=== PATIENT | female | born 1950 | race Caucasian/White ===

== ENCOUNTER 2021-01-11 22:22 | Observation (INO) | payer MEDICARE, SELFPAY ==
--- NOTE | 2021-01-11 22:13 | ECG_ITS ---
APPROVED REPORT Exam: Resting ECG HR:104 bpm ECG Measurements Heart Rate 104 AXES GA 182 P 69 QRSd 90 QRS -37 QT 364 T 67 QTc 478 Conclusion Sinus tachycardia with premature atrial complexes with aberrant conduction Left axis deviation Late r wave progression Abnormal ECG Electronically signed by : Dmitry Cesar, 01/12/2021 08:52:17
[2021-01-11 22:22] VITALS: BP 151/90; PULSE 103; RESP 22; TEMP 37.8; O2SAT 96; BMI 22.6
--- NOTE | 2021-01-11 22:27 | XR_ITS ---
PROCEDURE: XR CHEST 2V CLINICAL HISTORY: chest pain COMPARISON: No exams were available for comparison FINDINGS: The cardiomediastinal silhouette and pulmonary vascularity are within normal limits. COPD changes. There is some irregular increased density in the mid upper abdomen etiology indeterminate incompletely image. No acute bony findings. IMPRESSION: As above, no acute finding nonspecific irregular increased density mid upper abdomen incompletely imaged etiology indeterminate and may be better evaluated with abdominal images Dictated by: Peter Young MD 01/12/2021 06:00 Peter Young MD in [facility] 01/12/2021 06:00
--- NOTE | 2021-01-11 22:28 | CT_ITS ---
PROCEDURE: CT HEAD/BRAIN WO CON CLINICAL INDICATION: headache Headache and left weakness COMPARISON: No exams were available for comparison TECHNIQUE: Axial images obtained. All CT scans at the facility use one or more dose reduction, viz: automated exposure control, ma/kV adjustment per patient size (including targeted exams where dose is matched to indication, i.e. head), or iterative reconstruction technique. FINDINGS: No midline shift, mass effect, intracranial hemorrhage, hydrocephalus, or extra-axial fluid collection is evident. Old lacunar infarction is in the head of caudate on right. The calvarium has an unremarkable appearance. No mastoid effusion. No sinus air-fluid level. 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
--- NOTE | 2021-01-11 22:28 | CT_ITS ---
Procedure: CT ANGIO NECK CLINICAL HISTORY: left arm weakness, chest pain COMPARISON: CT CT ANGIO HEAD from 01/11/2021 TECHNIQUE: IV Contrast: 100ml Isovue 370 Axial images obtained with sagittal and coronal reformats. All CT scans at the facility use one or more dose reduction, viz: automated exposure control, ma/kV adjustment per patient size (including targeted exams where dose is matched to indication, i.e. head), or iterative reconstruction technique. FINDINGS: CTA neck: Scattered atheromatous changes are present involving the aortic arch and great vessels. Mild atheromatous change at the carotid bulb bilaterally with 30 percent stenosis of the ostium of the right ICA. No significant stenosis on the left. Prominent left vertebral artery with 40 percent stenosis of the ostium. 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 No significant stenosis, occlusion, ulcerations or dissection. CTA head: Mild atheromatous changes in the cavernous portion of the ICA on both sides. No aneurysm, occlusion, dissection, or AVMs. The basilar artery is contributed solely by the left vertebral. Centrilobular emphysema in the lung apices. No enhancing lesions within the brain. IMPRESSION: 1. Atherosclerotic changes in both carotid bifurcations without significant stenosis. 2. Hypoplastic right vertebral artery. Dictated by: Peter Young MD 01/12/2021 08:50 Peter Young MD in [facility] 01/12/2021 08:51
[2021-01-11 22:30] VITALS: BP 140/70; PULSE 98; RESP 17; O2SAT 95
--- NOTE | 2021-01-11 22:32 | HMH.EDGENADL ---
ED Disposition Clinical Impression: TIA (transient ischemic attack) Disposition: Admitted As Inpatient Condition on Discharge: Fair Time of Disposition: 00:32 - Critical Care Critical Care Time: No Attestation: On 01/11/21, the high probability of a clinically significant, sudden or life threatening deterioration of the following system(s) required my full and direct attention, intervention and personal management. The time I documented below is in addition to time spent performing reported procedures but includes the following listed in this critical care notation. Medical Decision Making - Medical Records Medical records reviewed: Yes: I reviewed the patient's medical records. - Esequiel Inquiry Pt receiving controlled substance: No Vital Signs: 01/11/21 22:22 01/11/21 22:30 01/12/21 00:00 Temperature 100.0 F H Temperature Source Oral Pulse Rate [Left Radial] 103 H 98 H 95 H Respiratory Rate 22 17 17 Blood Pressure [Right Arm] 151/90 H 140/70 128/56 L Blood Pressure Mean [Right Arm] 110 93 80 Blood Pressure Source [Right Arm] Automatic Cuff Automatic Cuff Automatic Cuff Blood Pressure Position [Right Arm] Supine Supine Supine 02 Sat by Pulse Oximetry 96 95 96 Oxygen Delivery Method Room Air Room Air Room Air 01/12/21 00:30 Temperature Temperature Source Pulse Rate [Left Radial] 91 H Respiratory Rate 21 Blood Pressure [Right Arm] 128/69 Blood Pressure Mean [Right Arm] 88 Blood Pressure Source [Right Arm] Automatic Cuff Blood Pressure Position [Right Arm] Supine 02 Sat by Pulse Oximetry 96 Oxygen Delivery Method Room Air - Lab Data Lab Results 01/11/21 22:15: WBC 10.9 H, RBC 4.59, Hgb 14.1, Hct 44.3, MCV 96.3, MCH 30.7, MCHC 31.9, RDW 13.2, Plt Count 327, MPV 7.8, Neut % (Auto) 70.2, Lymph % (Auto) 22.9, [place] % (Auto) 5.0, Eos % (Auto) 1.3, Baso % (Auto) 0.6, Neut # (Auto) 7.7, Lymph # (Auto) 2.5, [place] # (Auto) 0.6, Eos # (Auto) 0.1, Baso # (Auto) 0.1 01/11/21 22:15: Sodium 140, Potassium 4.2, Chloride 105, Carbon Dioxide 28, Anion Gap 11.2, BUN 14, Creatinine 0.90, Estimated GFR 62, Est GFR ( Amer) 75, Glucose 121 H, Calcium 9.9, Troponin I < 0.01 Result diagrams: 01/11/21 22:15 01/11/21 22:15 Orders (Tests/Meds): ED MEDICATIONS Generic Name Dose Route Start Last Admin Trade Name Freq PRN Reason Stop Dose Admin Nitroglycerin 0.4 mg 01/11/21 22:27 01/11/21 23:47 Nitroglycerin 0.4mg Sl Tablet SL 01/12/21 22:27 0.4 mg Q5MINP PRN Administration Chest Pain Discontinued Medications Generic Name Dose Route Start Last Admin Trade Name Freq PRN Reason Stop Dose Admin Aspirin 324 mg 01/11/21 22:27 01/11/21 23:47 Aspirin 81mg Chewable Tablet PO 01/11/21 22:28 324 mg ONCE ONE Administration ORDERS Category Date Time Status CT angio head Stat Cat Scan 01/11/21 22:[address] angio neck Stat Cat Scan 01/11/21 22:[address] head/brain wo con Stat Cat Scan 01/11/21 22:28 Ordered XR chest 2V Stat Exams 01/11/21 22:27 Ordered Full Resp Panel w/COVID ([facility]) Routine Lab 01/12/21 00:25 Received Troponin I Q3H Lab 01/12/21 01:30 Ordered Troponin I Q3H Lab 01/12/21 04:30 Ordered ECG Request by /Latonya Stat Y 01/11/21 22:27 Ordered - ECG Data Tracing #1 Sinus rhythm with ventricular rate of 104 bpm. QRS 90, QTc 478. Left axis deviation. ST segment flattening in aVL, V1. No reciprocal ST segment elevations. Medical Decision Narrative: In summary this is a 70-year-old female with history of hypertension presenting to the emergency department with chest pain, headache, left arm tingling. Patient clinically stable on arrival. Tachycardic. Other vital signs stable. Presentation is most concerning for acute coronary syndrome, aortic pathology,carotid stenosis, TIA, musculoskeletal pain. Will obtain CBC, CMP, chest x-ray, EKG, troponin profile, CT angiography of the head and neck, including the aortic arch. Initial laboratory
[2021-01-11 22:37] LABS: Chloride 105 mmol/L (98-107); Potassium 4.2 mmoL/L (3.5-5.1); Sodium 140 mmol/L (136-145)
[2021-01-11 22:39] LABS: Basophils # 0.1 K/mm3 (0-0.2); Basophils % 0.6 % (0.1-2.0); Eosinophils # 0.1 K/mm3 (0.0-0.4); Eosinophils % 1.3 % (0.1-12.0); Hematocrit 44.3 % (37.0-47.0); Hemoglobin 14.1 g/dL (12.2-16.2); Lymphocytes # 2.5 K/mm3 (0.7-4.5); Lymphocytes % 22.9 % (10-50); Mean Corpuscular HGB Conc 31.9 g/dL (31.8-35.4); Mean Corpuscular Hemoglobin 30.7 pg (27.0-31.2); Mean Corpuscular Volume 96.3 fl (81-99); Mean Platelet Volume 7.8 fl (7.4-10.4); Monocytes # 0.6 K/mm3 (0.1-1.0); Neutrophils # 7.7 K/mm3 (1.8-7.8); Neutrophils % 70.2 % (37.0-80.0); Platelet Count 327 K/mm3 (142-424); Red Blood Count 4.59 M/mm3 (4.20-5.40); Red Cell Distribution Width 13.2 % (11.5-17.5); White Blood Count 10.9 K/mm3 (4.8-10.8)
[2021-01-11 22:40] LABS: Anion Gap 11.2 mEq/L (5-15); Blood Urea Nitrogen 14 mg/dl (7-17); Calcium 9.9 mg/dl (8.4-10.2); Carbon Dioxide 28 mmol/L (22.0-30.0); Estimated Glomerular Filt Rate 62 ml/min (>60); GFR (African American) 75 ML/MIN (>60); Glucose 121 mg/dl (74-100)
[2021-01-11 22:57] LABS: Troponin I < 0.01 ng/ml (0.00-0.034)
[2021-01-12] VITALS (24 sets, daily range): BP systolic 105–163; BP diastolic 56–82; PULSE 70–104; RESP 14–22; TEMP 36.6–37.2; O2SAT 92–96; BMI 22.6; BMI 22.5
--- NOTE | 2021-01-12 | IR_ITS ---
APPROVED REPORT Patient Location: Inpatient Drill Press Operator: ESTELLE Hernandez RT (R) PROCEDURES Left heart catheterization Left ventriculogram Selective coronary angiogram INDICATION Unstable angina Informed consent was obtained prior to the procedure. COMPLICATIONS None Estimated Blood Loss: Less than 10 mls TECHNIQUE One percent lidocaine used to anesthetize the right anterior aspect of the wrist. The right radial artery was accessed via the Seldinger technique. A 6 Bulgarian sheath was placed in the right radial artery. 2.5 mg of verapamil, 800 mcg of nitroglycerin, 1mg Lidocaine and 5000 U Heparin were given through the arterial sheath. The trap catheter was also used to perform left heart catheterization, left ventriculogram and selective coronary angiogram. At the end of the procedure the sheath was removed good hemostasis was achieved using Traclet band, patient was transferred to the postop holding area in stable condition. ANGIOGRAPHIC RESULTS The left main artery Normal The left anterior descending artery Mild proximal mid vessel 10% stenoses The circumflex artery Nondominant with mild 10% luminal irregularities The right coronary artery Nondominant with mild 10% luminal irregularities The BRAR ventriculogram reveals Not performed The left ventricular end-diastolic pressure Not measured IMPRESSION Mild nonflow limiting coronary disease with nothing greater than 10% luminal irregularities PLAN 1. Medical management with noncardiac evaluation of chest pain Electronically signed by : Frank Arias, 01/12/2021 14:21:28
--- NOTE | 2021-01-12 00:22 | PC.NURSE ---
MD Sammi speaking to MD Ana at this time
[2021-01-12 00:32] LABS: Adenovirus,PCR Not Detected (NotDetected); Bordetella Pertussis Not Detected (NotDetected); Chlamydophila Pneumoniae, PCR Not Detected (NotDetected); Coronavirus 19, PCR Not Detected (NotDetected); Coronavirus 229E Not Detected (NotDetected); Coronavirus NL63 Not Detected (NotDetected); Coronavirus OC43 Not Detected (NotDetected); Coronovirus HKU1,PCR Not Detected (NotDetected); Human Metapneumovirus Not Detected (NotDetected); Influenza A, PCR Not Detected (NotDetected); Influenza AH1, 2009 Not Detected (NotDetected); Influenza AH1, PCR Not Detected (NotDetected); Influenza AH3,PCR Not Detected (NotDetected); Influenza B, PCR Not Detected (NotDetected); Mycoplasma Pneumoniae, PCR Not Detected (NotDetected); Parainfluenza 1, PCR Not Detected (NotDetected); Parainfluenza 2, PCR Not Detected (NotDetected); Parainfluenza 3, PCR Not Detected (NotDetected); Parainfluenza 4, PCR Not Detected (NotDetected); Respiratory Syncytial Virus Not Detected (NotDetected); Rhinovirus/Enterovirus Not Detected (NotDetected)
[2021-01-12 01:50] LABS: Troponin I < 0.01 ng/ml (0.00-0.034)
--- NOTE | 2021-01-12 02:23 | PC.NURSE ---
Addendum entered by Radha Bahena CNA 01/12/21 02:28: CORRECTION -CORRECT TIME TO THE FLOOR WAS 0222 Original Note: PT ARRIVED TO FLOOR VIA W/C FROM ED W/STAFF AT 9350
--- NOTE | 2021-01-12 03:55 | PC.NURSE ---
Pt arrived to unit 0230, A&O x4. no complaints of pain or discomfort. pt was able to ambulate independently to the bathroom. Lungs diminished but clear overall. Bowel sounds x4, abd soft and nontender. Stroke scale was negative, pt speech clear, smile equal, no drift, no numbness. Pt reports feeling much better now that her headache is relieved. VSS, call light in reach, no concerns at this time.
[2021-01-12 04:11] LABS: Troponin I < 0.01 ng/ml (0.00-0.034)
[2021-01-12 06:17] LABS: Basophils # 0.1 K/mm3 (0-0.2); Basophils % 0.6 % (0.1-2.0); Eosinophils # 0.1 K/mm3 (0.0-0.4); Eosinophils % 1.4 % (0.1-12.0); Hematocrit 38.9 % (37.0-47.0); Hemoglobin 12.7 g/dL (12.2-16.2); Lymphocytes % 33.3 % (10-50); Mean Corpuscular HGB Conc 32.7 g/dL (31.8-35.4); Mean Corpuscular Hemoglobin 31.1 pg (27.0-31.2); Mean Corpuscular Volume 95.2 fl (81-99); Mean Platelet Volume 8.1 fl (7.4-10.4); Monocytes # 0.5 K/mm3 (0.1-1.0); Monocytes % 5.8 % (1.7-9.3); Neutrophils # 5.2 K/mm3 (1.8-7.8); Platelet Count 292 K/mm3 (142-424); Red Blood Count 4.09 M/mm3 (4.20-5.40); Red Cell Distribution Width 13.2 % (11.5-17.5); White Blood Count 8.9 K/mm3 (4.8-10.8)
[2021-01-12 06:21] LABS: Anion Gap 8.9 mEq/L (5-15); Blood Urea Nitrogen 10 mg/dl (7-17); Calcium 9.2 mg/dl (8.4-10.2); Carbon Dioxide 27 mmol/L (22.0-30.0); Chloride 106 mmol/L (98-107); Creatinine Clearance Estimated 52 mL/min (50-200); Estimated Glomerular Filt Rate 71 ml/min (>60); GFR (African American) 86 ML/MIN (>60); Glucose 97 mg/dl (74-100); Potassium 3.9 mmoL/L (3.5-5.1); Sodium 138 mmol/L (136-145)
--- NOTE | 2021-01-12 06:21 | HMH.HP ---
*Admission Date: 01/12/21 *Chief complaint: chest pain, arm tingling *History of present illness: Ms. Ramirez is a 70-year-old female with history of hypertension, tobacco use, who presented to the ER last night with chest pain, headache, and left jaw and arm tingling. Patient clinically stable on arrival. She was noted to have some tachycardia but blood pressure was otherwise stable. Work-up was initiated for ACS, TIA, musculoskeletal pain. Labs were within normal limits. Troponins were negative. Imaging of her head showed concern for history of right lacunar infarct. This morning she states that when she received aspirin and nitro she felt much better and had improvement in her pain. This morning she feels pretty good. Does feel fatigued but denies any chest pain or referred pains. No palpitations. Blood pressures remained stable overnight. Is afebrile. Ate breakfast this morning. Was admitted to medicine for concern for TIA, however my concern this morning is that she has potentially some acute coronary syndrome. Cardiology consult placed this morning [facility] History I have reviewed the patient's past medical history: Yes Medical History: Reports:: Hypertension Denies:: Diabetes Mellitus Type 1, Diabetes Mellitus Type 2 *Have you ever received a pneumonia vaccine?: No *Have you received a flu vaccine this season?: No - *Social History Last grade of school completed: Some college Smoking Status: Current every day smoker Tobacco Type: cigarettes # Packs/Day (cigarettes): 1 Alcohol Intake: current Alcohol Intake Frequency:: holidays/special occasions only *Occupational Status:: retired Household Members: spouse *Travel in the last 8 weeks: None Family Hx:: No significant family history Review of Systems - Review of Systems Review of systems:: pertinent systems reviewed and negative unless documented below (14 point review of systems performed, pertinent positives and negatives as per HPI) - *Neurologic Reports headache(s), Denies dizziness Meds Home Medications Medication Instructions Recorded Confirmed Type Aspirin [Aspirin 81mg chewable 81 mg PO DAILY 30 Days #30 tab.chew 01/12/21 Rx tab] Atorvastatin Calcium [Lipitor 40mg 40 mg PO HS 30 Days #30 tab 01/12/21 Rx Tablet*] Clopidogrel Bisulfate [Plavix 75mg 75 mg PO DAILY 21 Days #21 tab 01/12/21 Rx Tab] Metoprolol Succinate [Toprol XL 12.5 mg PO DAILY 30 Days #15 01/12/21 Rx 25mg tablet] tab.er.24h Allergies Allergy/AdvReac Type Severity Reaction Status Date / Time No Known Allergies Allergy Verified 01/11/21 23:46 Exam Vital signs and Labs for Last 24 Hours: Temp Pulse Resp BP Pulse Ox 98.5 F 84 16 127/56 L 95 01/12/21 04:00 01/12/21 04:00 01/12/21 04:00 01/12/21 04:00 01/12/21 04:00 Laboratory Results - last 24 hr 01/11/21 22:15: WBC 10.9 H, RBC 4.59, Hgb 14.1, Hct 44.3, MCV 96.3, MCH 30.7, MCHC 31.9, RDW 13.2, Plt Count 327, MPV 7.8, Neut % (Auto) 70.2, Lymph % (Auto) 22.9, [place] % (Auto) 5.0, Eos % (Auto) 1.3, Baso % (Auto) 0.6, Neut # (Auto) 7.7, Lymph # (Auto) 2.5, [place] # (Auto) 0.6, Eos # (Auto) 0.1, Baso # (Auto) 0.1 01/11/21 22:15: Sodium 140, Potassium 4.2, Chloride 105, Carbon Dioxide 28, Anion Gap 11.2, BUN 14, Creatinine 0.90, Estimated GFR 62, Est GFR ( Amer) 75, Glucose 121 H, Calcium 9.9, Troponin I < 0.01 01/12/21 00:25: Chlamy pneumoniae PCR Not detected, Adenovirus (PCR) Not detected, B. pertussis DNA (PCR) Not detected, Coronavirus OC43 (PCR) Not detected, Coronavirus HKU1 (PCR) Not detected, Coronavirus 229E (PCR) Not detected, SARS-CoV-2 (PCR) Not detected, Coronavirus NL63 (PCR) Not detected, Human Metapneumovir PCR Not detected, Influenza A (H1) PCR Not detected, Influ A (H1N1/09) PCR Not detected, Influenza A (H3) PCR Not detected, Influenza Type A (PCR) Not detected, Influenza Type B (PCR) Not detected, M. pneumoniae (PCR) Not detected, Parainfluenza 1 (PCR) Not detected, Par
[2021-01-12 06:46] LABS: Troponin I < 0.01 ng/ml (0.00-0.034)
--- NOTE | 2021-01-12 07:03 | PC.NURSE ---
nursing staff went in and found pt on knees in the floor. PT states she tried to get up and walk to the bathroom but suddenly felt weak and slide down onto the floor. PT is A&O x4 and reports no pain anywhere. notified.
--- NOTE | 2021-01-12 07:26 | P.CONPHA_ITS ---
[facility] Pharmacy VTE Monitoring - Patient Demographics Admission date: 01/11/21 Report Date: 01/12/21 Time: 07:26 Allergies/Adverse Reactions: Patient Allergies No Known Allergies Allergy (Verified 01/11/21 23:46) Height: 1.68 m Weight: 63.503 kg Patient Problems: Current Active Problems TIA (transient ischemic attack) (Acute) - VTE Risk Labs: VTE Related Lab Results Hgb 12.7 g/dL (12.2-16.2) 01/12/21 05:30 Hct 38.9 % (37.0-47.0) 01/12/21 05:30 Plt Count 292 K/mm3 (142-424) 01/12/21 05:30 BUN 10 mg/dl (7-17) D 01/12/21 05:30 Creatinine 0.80 mg/dl (0.52-1.04) 01/12/21 05:30 Estimated Creat Clear 52 mL/min (50-200) 01/12/21 05:30 VTE Risk Level: Low Risk - Prophylaxis VTE Prophylaxis Ordered?: Yes Types of VTE Prophylaxis: TEDS Knee High Location of Applied Device: Bilateral Lower Extremeties
--- NOTE | 2021-01-12 08:00 | CA_ITS ---
APPROVED REPORT EXAM: Comprehensive 2D, Doppler, and color-flow Echocardiogram Medical Research Scientist: Autumn Chandler RVT Ht: 5 ft 6 in Wt: 140lbs BSA: 1.72 BP: 127/56 mmHg Indications: TIA,CP,SMOKER,HTN 2D Dimensions LVOT 2.07 cm (M/F) 1.5-2.5 LA Volume 15.30 mL LA Volume Index 8.89 mL/m2 (M/F) 16-34 M-Mode Dimensions RVDd 3.57 cm (0.9-2.6) LA Diam 2.59 cm (1.9-4.0) LVDd 3.99 cm (3.5-5.7) Ao Diam 2.74 cm (2.0-3.7) LVDs 2.69 cm (3.5-5.7) IVSd 1.06 cm (0.6-1.1) PWd 0.53 cm (0.6-1.1) EF (Teich) 61.50% FS 32.60% EDV (Teich) 69.60 mL ESV (Teich) 26.80 mL LV Diastology E Decel Time 150.00 (160-240 msec) E/A Ratio 0.6 MED E' 5.70 (< 7 cm/sec) E'/MED E' Ratio 10.46 (>14) LAT E' 5.70 (<10 cm/sec) E/LAT E' Ratio 10.46 (>14) Aortic Valve AI PHT 419.00 ms AO Peak GR. 4.30 mmHg Mitral Valve MV E Max Melvin. 60.00 (40-130 cm/s) MV A Velocity 97.00 (40-130 cm/s) E/A Ratio 0.61 MV Decel. Time 150.00 (160-240 ms) MV PHT 44.00 ms Pulmonary Valve PV Peak Velocity 66.00 (50-150 cm/s) Left Ventricle Left atrium is mildly enlarged, left ventricle is normal size, mild concentric left ventricular hypertrophy, visually estimated ejection fraction 55% with no regional wall motion abnormality, grade 1 diastolic dysfunction seen without tissue Doppler evidence of raise left atrial pressure. Right Ventricle Right atrium and right ventricle are mildly enlarged with normal contractility. Aortic Valve Aortic valve is minimally thickened and fibrosed, there is no aortic stenosis, there is moderate aortic insufficiency. Mitral Valve Mitral valve is grossly normal, there is trace mitral regurgitation. Tricuspid Valve Tricuspid valve grossly normal, there is trace tricuspid regurgitation. Tricuspid regurgitation jet velocity is inadequate for calculation of the right ventricular systolic pressure. Pulmonic Valve Pulmonic valve is poorly visualized. Great Vessels Aortic root is normal size. Pericardium No significant pericardial effusion noted. Conclusion 1. Normal left ventricular size, mild concentric left ventricular hypertrophy, visually estimated ejection fraction 55% with no regional wall motion abnormality, grade 1 diastolic dysfunction seen without tissue Doppler evidence of raise left atrial pressure. 2. Moderate aortic, trace mitral and tricuspid regurgitation. 3. No significant pericardial effusion noted. Electronically signed by : Epifanio Sam, 01/12/2021 12:44:36
--- NOTE | 2021-01-12 09:43 | HMH.CNCARD ---
History of Present Illness Consult date: 01/12/21 Requesting physician: Reji Perez Chief complaint: Headache, chest pain Additional Medical History:: 1. Tobacco use, 1.5 packs/day x 40 years 2. Hypertension 3. Bilateral carotid bruits with carotid artery calcifications noted on CTA of the neck and head CT, 01/11/2021 4. Suspected hyperlipidemia History of present illness: Ms. Ramirez is a 70-year-old female with history of hypertension, tobacco use, who presented to the ER last night with chest pain, headache, and left jaw and arm tingling. Patient clinically stable on arrival. She was noted to have some tachycardia but blood pressure was otherwise stable. Work-up was initiated for ACS, TIA, musculoskeletal pain. Labs were within normal limits. Troponins were negative. Imaging of her head showed concern for history of right lacunar infarct. This morning she states that when she received aspirin and nitro she felt much better and had improvement in her pain. Tachycardic. Other vital signs stable. Presentation is most concerning for acute coronary syndrome, aortic pathology,carotid stenosis, TIA, musculoskeletal pain. Will obtain CBC, CMP, chest x-ray, EKG, troponin profile, CT angiography of the head and neck, including the aortic arch. Initial laboratory results are reassuring. No significant leukocytosis. Ct angiography shows remote right caudate infarct, moderate (<10%) plaque in the carotids. The location of the lesion does not fit patient's symptoms. Is concerning for small vessel ischemic disease. She has never had an echo. Is not on antiplatelet medication. On reassessment no longer having tingling in her left arm. No headache or chest pain. Findings discussed with patient and her daughter at bedside. They are agreeable with plan for admission and further work-up of transient ischemic attack. The above per Dr. Perez and ER MD (Dr. Chapa) Patient relates sudden onset of severe headache at about 1:30 AM yesterday morning. After waking up, she noticed bilateral jaw pain, neck pain, left shoulder and arm numbness and tingling along with a severe chest heaviness. She denies any nausea, vomiting, diaphoresis or diarrhea but does relate significant heartburn symptoms that were unresolved with 2 separate antiacids. Symptoms persisted throughout the day to intermittent intensity without noticeable increase due to activity. Her granddaughter bring her to the ER last evening for further evaluation. ER work-up as noted above including CT of the head showing old infarct not felt to relate to current symptoms. EKG was sinus tachycardia otherwise unremarkable. Troponins were normal. Patient does relate that the nitroglycerin and aspirin resolved her headache, chest pressure, jaw pain and left arm discomfort. She has had no recurrence since then. Review of her CT of the neck and head showed extensive carotid calcification and aortic arch calcification. Patient has been smoking for greater than 40 years and has history of prior treatment for hypertension. [facility] History Medical History: Reports:: Hypertension Denies:: Diabetes Mellitus Type 1, Diabetes Mellitus Type 2 *Have you ever received a pneumonia vaccine?: No *Have you received a flu vaccine this season?: No - *Social History Last grade of school completed: Some college Smoking Status: Current every day smoker Tobacco Type: cigarettes # Packs/Day (cigarettes): 1 Alcohol Intake: current Alcohol Intake Frequency:: holidays/special occasions only *Occupational Status:: retired Household Members: spouse *Travel in the last 8 weeks: None Family Hx:: No significant family history Meds Home Medications Medication Instructions Recorded Confirmed Type No Known Home Medications 01/12/21 01/12/21 History Allergies Allergy/AdvReac Type Severity Reaction Status Date / Time No Known Allergies Allergy Verified 01/11/21 23:46 Exam Vital signs and Labs f
--- NOTE | 2021-01-12 10:08 | CA_ITS ---
APPROVED REPORT Activity Leader: Autumn Chandler RVT Laterality: Bilateral Study Quality: Good Indications: bilateral bruits, carotid calcification on CT Risk Factors Hypertension: TIA/CVA History Hyperlipidemia Smoking Doppler Spectral Velocity Analysis ECA (R) 61.00/11.80 cm/s ECA (L) 94.20/12.90 cm/s dICA (R) 95.20/23.50 cm/s dICA (L) 87.40/30.00 cm/s Chichi (R) 97.30/23.50 cm/s Chichi (L) 86.50/26.60 cm/s pICA (R) 49.20/13.90 cm/s pICA (L) 66.00/16.30 cm/s dCCA (R) 37.40/8.60 cm/s dCCA (L) 42.80/7.70 cm/s pCCA (R) 62.00/11.80 cm/s pCCA (L) 43.70/9.40 cm/s Vert (R) 28.30/7.70 cm/s Vert (L) 58.30/17.10 cm/s ICA/CCA 2.60 ICA/CCA 2.04 Findings Study suggests 20-49% stenosis of the right internal cartoid artery. Study suggests less than 20% stenosis of the left internal cartoid artery. Antegrade flow seen bilateral vertebral arteries. Conclusion Study suggests 20-49% stenosis of the right internal cartoid artery. Study suggests less than 20% stenosis of the left internal cartoid artery. Antegrade flow seen bilateral vertebral arteries. Electronically signed by : Peter Young MD 01/12/2021 16:15:38
[2021-01-12 10:21] LABS: Cholesterol 206 mg/dl (140-200); HDL Cholesterol 52 mg/dl (40-60); Triglycerides 180 mg/dl (30-150); VLDL Cholesterol 36 mg/dL (0-40)
[2021-01-12 10:32] LABS: Direct LDL Cholesterol 123.71 mg/dL (100-129)
--- NOTE | 2021-01-12 10:49 | HMH.PHAINT ---
PERFORMING MED REC ON PATIENT, SHE STATED THAT SHE CURRENTLY TAKES NO MEDICATIONS AT HOME OTHER THAN TYLENOL. -MELO SHEARER, MAYAD
--- NOTE | 2021-01-12 11:54 | PC.NURSE ---
PT OFF FLOOR WITH [facility] STAFF.
--- NOTE | 2021-01-12 17:05 | PC.NURSE ---
TRACELET REMOVED AT THIS TIME. THERE WAS A SMALL HEMOTOMA NOTED ABOVE THE TRACELET AREA. PRESSURE HELD FOR 15 MINS AND NOW IS SOFT. NO BLEEDING NOTED ON DRESSING.
--- NOTE | 2021-01-12 18:28 | HMH.DCSUM ---
General - General Admission date:: 01/12/21 Discharge date: 01/12/21 HPI HPI: Ms. Ramirez is a 70-year-old female with history of hypertension, tobacco use, who presented to the ER last night with chest pain, headache, and left jaw and arm tingling. Patient clinically stable on arrival. She was noted to have some tachycardia but blood pressure was otherwise stable. Work-up was initiated for ACS, TIA, musculoskeletal pain. Labs were within normal limits. Troponins were negative. Imaging of her head showed concern for history of right lacunar infarct. This morning she states that when she received aspirin and nitro she felt much better and had improvement in her pain. This morning she feels pretty good. Does feel fatigued but denies any chest pain or referred pains. No palpitations. Blood pressures remained stable overnight. Is afebrile. Ate breakfast this morning. Was admitted to medicine for concern for TIA, however my concern this morning is that she has potentially some acute coronary syndrome. Cardiology consult placed this morning Hospital Course Hospital Course: 70-year-old female admitted for concern for TIA versus ACS. Noted to have no focal neurologic deficits on assessment during hospitalization. More concern for ACS. Cardiology was consulted and took patient for left heart cath after recommending further assessment. Patient noted to have no clinically significant arterial disease. Initiated on dual antiplatelet therapy for TIA treatment. Initiated on beta-sandra for blood pressure and heart rate. Also initiated ARB. Plan to have outpatient follow-up with primary care within the next week and cardiology within the next 2 weeks. Further discussion of possible neuro referral with PCP as an outpatient. Medically stable for discharge home in the care of her daughter. Questions answered. Objective Vital signs: Temp Pulse Resp BP Pulse Ox 97.9 F 70 17 121/71 95 01/12/21 11:33 01/12/21 17:19 01/12/21 17:05 01/12/21 17:05 01/12/21 17:05 Narrative: - Constitutional no acute distress - *Routine HEENT Exam Head: Present: normocephalic Eye: Present: EOMI, PERRL ENT: Present: mucous membranes moist - *Routine Neck Exam Present: supple. Absent: lymphadenopathy - *Routine Respiratory Exam Present: CTA bilaterally - *Routine Cardiovascular Exam Present: RRR - *Routine Abdominal Exam Present: soft, normoactive bowel sounds. Absent: tenderness - *Routine Extremities Exam Absent: cyanosis, clubbing, edema - *Routine Skin Exam Present: warm. Absent: rash - *Routine Neurological Exam Present: alert, oriented X3, CN II-XII intact, moving all extremities, normal speech. Absent: sensory deficit, motor deficit, pronator drift, altered mental status, facial asymmetry Results Labs on day of discharge: Labs from last 24 hours 01/12/21 01/12/21 01/12/21 05:30 05:30 05:30 WBC 8.9 RBC 4.09 L Hgb 12.7 Hct 38.9 MCV 95.2 MCH 31.1 MCHC 32.7 RDW 13.2 Plt Count 292 MPV 8.1 Neut % (Auto) 59.0 Lymph % (Auto) 33.3 [place] % (Auto) 5.8 Eos % (Auto) 1.4 Baso % (Auto) 0.6 Neut # (Auto) 5.2 Lymph # (Auto) 3.0 [place] # (Auto) 0.5 Eos # (Auto) 0.1 Baso # (Auto) 0.1 Sodium 138 Potassium 3.9 Chloride 106 Carbon Dioxide 27 Anion Gap 8.9 BUN 10 D Creatinine 0.80 Estimated Creat Clear 52 Estimated GFR 71 Est GFR ( Amer) 86 Glucose 97 Calcium 9.2 Troponin I < 0.01 Triglycerides 180 H Cholesterol 206 H LDL Cholesterol Direct 123.71 VLDL Cholesterol 36 HDL Cholesterol 52 Cholesterol/HDL Ratio 4.0 H Chlamy pneumoniae PCR Adenovirus (PCR) B. pertussis DNA (PCR) Coronavirus OC43 (PCR) Coronavirus HKU1 (PCR) Coronavirus 229E (PCR) SARS-CoV-2 (PCR) Coronavirus NL63 (PCR) Human Metapneumovir PCR Influenza A (H1) PCR
--- NOTE | 2021-01-12 18:41 | PC.NURSE ---
PT NEURO SCALE WNL TODAY. NO COMPLAINTS VOICED BY PATIENT. SHE AMBULATES TO BATHROOM WITH STANDBY ASSIST. PER Emigdio FUENTES RN PT DID RECEIVE BENADRYL IV 25MG FOR HEART CATH.
== END 2021-01-12 18:42 | disposition home or self-care (01) ==
LOC: ER 01-12 00:37 → 2ND 01-12 02:13
PROVIDERS: Internal Medicine; Physician Assistant; Admitting Provider Internal Medicine Adolescent Medicine; Emergency Provider Emergency Medicine; PCP Nurse Practitioner Family; Visit Provider Internal Medicine Adolescent Medicine
DX: R07.9 Chest pain, unspecified (principal); I25.110 Atherosclerotic heart disease of native coronary artery with unstable angina pectoris; Z72.0 Tobacco use; I10 Essential (primary) hypertension; Z79.899 Other long term (current) drug therapy; G45.8 Other transient cerebral ischemic attacks and related syndromes
CPT/HCPCS: 36415; 70450; 70496; 70498; 71046; 80048; 80061; 84484; 85025; 87581; 87633; 87798; 93005; 93306; 93458; 93880; 99152; 99153; 99284; C1725; C1769; G0378; J1644; Q9967

== ENCOUNTER 2021-02-12 13:00 | Outpatient (RCR) | payer MEDICARE, SELFPAY ==
--- NOTE | 2021-02-01 14:33 | HMH.PTOPEV ---
PT Outpatient Evaluation Rehab PT Outpatient Evaluation Start: 02/01/21 13:58 Freq: Status: Active Protocol: Document 02/01/21 13:58 LIBORIO (Rec: 02/01/21 14:32 PDESEROUX [id number]) Electronically Signed By Lio Sweet, PT 02/01/21 13:58 Outpatient Therapy Subjective History Subjective History Pt. is a 70 year old female who presents to outpatient PT clinic w/ complaints of subacute and constant fatigue, weakness, and L shldr./scapulae P! post TIA 1 month ago. Pt. reports she woke up that morning w/ a horrid headache, but just took a Tylenol for symptom relief d/t chronic history of VAZQUEZ's. Pt. reports having increased pressure localized to her L jaw, cervical region , shldr., and LUE later that day, therefore, called her daughter to drive her to the ER at [facility]. Recent diagnostic imaging indicated a previous TIA per pt. report. Pt. also reports finding a 10% blockage in one of her cardiac arteries, and a slow leak in one of her cardiac valves. Pt . RTMD 02/22/21. Pt. currently complains of having a fuzzy feeling that includes trouble vocalizing words and trouble w / fine motor skills including penmanship. Pt. also complains of an ache and tingling below her L scapulae. Pt. reports her goals w/ PT are to build her strength back up. Current medications include Aspirin, Atorvastatin, Clopidogrel Bisulfate, Metoprolol, Tylenol , and sinus advil. PMH includes Hypertension, Anxiety disorder, and Hypoglycemia. Chief Complaint Pain,Paresthesia,Weakness Symptom Type Ache,Numbness Symptoms Relieved By Prescription Meds,Activity Symptoms Aggravated By Standing,Physical Activity, Walking,Lifting
== END 2021-03-08 13:48 | disposition home or self-care (01) ==
LOC: PT.CARL 13:00
PROVIDERS: PCP Internal Medicine Adolescent Medicine; Visit Provider Internal Medicine Adolescent Medicine
DX: G45.9 Transient cerebral ischemic attack, unspecified (principal); R53.1 Weakness
CPT/HCPCS: 97110; 97163

== ENCOUNTER → 2021-03-09 08:24 | Outpatient (CLI) | payer MEDICARE, SELFPAY ==
--- NOTE | 2021-03-09 08:27 | CT_ITS ---
PROCEDURE: CT LUNG SCREENING CLINICAL INDICATION: H/O NICOTINE DEPENDENCE Current smoker 40 pack year smoking history No prior COMPARISON: CR XR CHEST 2V from 01/11/2021 TECHNIQUE: The exam was performed on a GE Light Speed [address] scanner using 2.90 mGy CTDI. A low dose helical CT CHEST was performed on a multi-detector scanner. All CT scans at the facility use one or more dose reduction, viz: automated exposure control, ma/kV adjustment per patient size (including targeted exams where dose is matched to indication, i.e. head), or iterative reconstruction technique. The LDCT was performed in a facility that meets the criteria for the screening program. Data regarding this exam was submitted to ACR which is an approved registry. The order for this exam indicates that it came as a result of a lung cancer screening counseling shard decision-making visit that included all the elements required of such a visit including smoking cessation. The radiologist interpreting this exam meets the CMS criteria for the LDCT lung cancer screening program. The exam is reported using the Lung-RADS classification scale and reported to the ACR registry. NOTE: This study was performed for the specific purposes of lung cancer screening and is not an alternative to diagnostic chest CT. RADIATION DOSE: CTDI vol(CT dose Index-volume) = 2.90mG DLP (Dose Length Product) = 106.55 mGcm FINDINGS: COPD changes. Centrilobular emphysema. 3 mm subpleural nodule left upper lobe laterally. Minimal fibrotic change in the lung bases OTHER FINDINGS: Coronary artery calcifications. There is diffuse fusiform dilatation of the ascending aorta measuring 6.5 cm. Cardiothoracic surgery consult suggested. CT aortogram suggested for further evaluation. There is an 8 mm nodule in the inferior aspect of the left breast. Mammogram and ultrasound recommended. IMPRESSION: Lung-RADS Category 2 Benign Appearance or Behavior 6.5 cm fusiform ascending thoracic aortic aneurysm. Suggest CT aortogram and cardiothoracic surgery consult. Indeterminate left breast nodule. Suggest mammogram and ultrasound for further evaluation. Dictated by: Peter Young MD 03/11/2021 08:23 Peter Young MD in [place] 03/11/2021 08:23
== END ==
PROVIDERS: PCP Internal Medicine Adolescent Medicine; Visit Provider Internal Medicine Adolescent Medicine
DX: Z87.891 Personal history of nicotine dependence (principal); Z12.2 Encounter for screening for malignant neoplasm of respiratory organs
CPT/HCPCS: 71271

== ENCOUNTER → 2021-03-23 09:51 | Outpatient (CLI) | payer MEDICARE, SELFPAY ==
--- NOTE | 2021-03-23 10:02 | CT_ITS ---
PROCEDURE: CT ANGIO CHEST CLINCIAL INDICATION: THORACIC AORTIC ANEURYSM W/O RUPTURE COMPARISON: CT CT LUNG SCREENING from 03/09/2021 TECHNIQUE: IV Contrast: 70ML Isovue 370 Axial images obtained with sagittal and coronal reformats. All CT scans at the facility use one or more dose reduction, viz: automated exposure control, ma/kV adjustment per patient size (including targeted exams where dose is matched to indication, i.e. head), or iterative reconstruction technique. FINDINGS: HEART AND MEDIASTINAL STRUCTURES: There is an ascending thoracic aortic aneurysm which measures 5.9 by 6.2 cm. A curvilinear flap is present within the distal aspect of the ascending aorta beginning in the mid ascending aorta along the right lateral aspect and extending to the cephalad portion of the ascending thoracic aorta ending just proximal to the brachiocephalic artery origin.. The true and false lumen a fill with contrast. The aortic arch measures approximately 3.5 cm in diameter.. No evidence of descending thoracic aortic aneurysm. There is some mild atherosclerotic plaque of the aorta. The mild atheromatous changes involve the proximal aspect of the great vessels without significant stenosis. There is approximately 40 percent narrowing of the proximal aspect of the left subclavian artery. No evidence of dissection into the great vessels. 2 no mediastinal hematoma apparent. No mediastinal or hilar adenopathy or mass. No evidence of pericardial effusion. LUNGS AND PLEURAL SPACES: COPD changes with mild centrilobular emphysema. No lobar consolidation or collapse. Asymmetric density once again noted in the outer aspect of the left breast. BONY STRUCTURES: Degenerative changes thoracic spine UPPER ABDOMEN: Unremarkable. ADDITIONAL FINDINGS: No other significant abnormalities. IMPRESSION: 1. Type 1 ascending thoracic aortic dissection with aneurysmal dilatation of the aorta measuring 6.2 x 5.9 cm. The dissection ends just proximal to the right brachiocephalic artery. Please see above for detail 2. COPD with centrilobular emphysematous changes 3. Dr. Cesar was notified of the above findings by telephone 03/23/2021 at 11:30 a.m. Dictated by: Peter Young MD 03/23/2021 11:43 Peter Young MD in [place] 03/23/2021 11:43
[2021-03-23 10:18] LABS: Blood Urea Nitrogen 12 mg/dl (7-17); Estimated Glomerular Filt Rate 71 ml/min (>60); GFR (African American) 86 ML/MIN (>60)
== END ==
PROVIDERS: PCP Internal Medicine Adolescent Medicine; Visit Provider Internal Medicine Adolescent Medicine
DX: I71.2 Thoracic aortic aneurysm, without rupture (principal)
CPT/HCPCS: 36415; 71275; 82565; 84520; Q9967

== ENCOUNTER 2022-04-17 14:41 | Emergency (ER) | payer MEDICARE, MEDICAID, SELFPAY ==
--- NOTE | 2022-04-17 14:51 | XR_ITS ---
FINAL REPORT CLINICAL HISTORY: FALL FINDINGS: LEFT ANKLE Three views of the left ankle were obtained. There is a calcification at the superior aspect of the distal talus which may represent an avulsion fracture but of uncertain age. The joint spaces and mortise are intact. There is a small plantar calcaneal spur. There is lateral soft tissue swelling. IMPRESSION: Calcification at the superior aspect of the distal talus, may represent an avulsion fracture of uncertain age. Reviewed, Interpreted and Dictated by Roberto Tabares III, MD Transcribed by Cathy Bryan Authenticated and [facility]
[2022-04-17 15:30] VITALS: BP 107/76; PULSE 89; RESP 19; TEMP 36.6; O2SAT 97; BMI 22.4
--- NOTE | 2022-04-17 15:43 | HMH.EDUTC ---
[facility] Disposition Clinical Impression: Ankle injury Qualifiers: Encounter type: initial encounter Laterality: left Qualified Code(s): S99.912A - Unspecified injury of left ankle, initial encounter Disposition: Home, Self-Care Condition on Discharge: Good Instructions: How To Perform RICE (Rest, Ice, Compress, Elevate) Additional Instructions: *weight bearing as tolerated you can use your walker to get around *RICE, Rest the extremity, Ice 15-20 minutes 3-4 times daily, Compress- wear the shane wrap as discussed as much as possible to help reduce swelling and pain, Elevate the extremity when at rest *Short Cam walking boot is for support and help control swelling, use it except in the shower. Be sure that is not to tight but not to loose either *Elevate when resting *Ibuprofen as directed on package every 6-8 hours as needed for pain an inflammation. If need something more can take Tylenol in between doses of Ibuprofen to help Immediately follow up with your family doctor for new or worsening of symptoms, or no noticeable improvement over the next 3-5 days You was give prescription for short cam walking boot you can take that to [facility] for your boot Call Dr Ambrosio office in the morning for appointment Referrals: Reji Perez MD [Primary Care Provider] - As needed Nirav Ambrosio MD [Staff Physician] - (Call the office in the morning for appointment) Time of Disposition: 17:02 Medical Decision Making - Esequiel Inquiry Pt receiving controlled substance: No Esequiel was queried for this patient: No Vital Signs: 04/17/22 15:30 04/17/22 16:37 Temperature 97.8 F 97.8 F Temperature Source Oral Pulse Rate 89 Pulse Rate [Right Brachial] 89 Respiratory Rate 19 19 Blood Pressure 107/76 L Blood Pressure [Right Arm] 107/76 L Blood Pressure Mean [Right Arm] 86 Blood Pressure Source [Right Arm] Automatic Cuff Blood Pressure Position [Right Arm] Sitting 02 Sat by Pulse Oximetry 97 Oxygen Delivery Method Room Air - Radiology Data #1 Image(s): Ankle Image Reviewed: Yes I have reviewed radiologist's interpretation IMPRESSION: Calcification at the superior aspect of the distal talus, may represent an avulsion fracture of uncertain age. - Physician Consults Physician Consulted: Dr Ambrosio Time: 16:44 Reason -: Orthopedic Eval/Care Comment/Response: Spoke with Dr Ambrosio and he viewed xray and advised to place in short cam walking boot if available and RICE have her call the office tomorrow for appointment [facility] HPI - General Stated complaint: AO fall 04/17 lt foot pain Time Seen by Provider: 04/17/22 15:43 Mode of Arrival: Ambulatory Source of Information: Patient Limitations: No Limitations Description of Symptoms (Recalled from Triage Doc. by RN): PATIENT C/O LEFT ANKLE INJURY AFTER ROLLING IT WHEN STANDING UP TODAY HEENT Symptoms (Recalled from RN notes): No Resp Symptoms (Recalled from RN notes): No Skin Symptoms (Recalled from RN notes): No MS Symptoms (Recalled from RN notes): Yes Functional Status (Recalled from RN notes): WNL - History of Present Illness Provider Complaint: Patient state that she was at home sitting in the rocker and as she was standing up she rolled her left ankle States that she tried to catch herself but she fell States that she has been having bruising and swelling in her left ankle ever since States that she is also sore in her right calf area where she pulled a muscle when she fell but that is ok her ankle is where the pain is - Related Data Previous Rx's Medication Instructions Recorded Aspirin [Aspirin 81mg chewable 81 mg PO DAILY 30 Days #30 tab.chew 01/12/21 tab] Atorvastatin Calcium [Lipitor 40mg 40 mg PO HS 30 Days #30 tab 01/12/21 Tablet*] Clopidogrel Bisulfate [Plavix 75mg 75 mg PO DAILY 21 Days #21 tab 01/12/21 Tab] metoprolol succinate 25 mg 25 mg PO DAILY 30 Days #30 tab 01/23/21 tablet,extended release 24 hr Allergies Allergy/AdvReac Type
[2022-04-17 16:37] VITALS: BP 107/76; PULSE 89; RESP 19; TEMP 36.6; O2SAT 97
== END 2022-04-17 17:12 | disposition home or self-care (01) ==
PROVIDERS: Emergency Provider Nurse Practitioner; PCP Internal Medicine Adolescent Medicine
DX: S99.912A Unspecified injury of left ankle, initial encounter (principal); X50.1XXA Overexertion from prolonged static or awkward postures, initial encounter; I10 Essential (primary) hypertension; F17.210 Nicotine dependence, cigarettes, uncomplicated; Z86.73 Personal history of transient ischemic attack (TIA), and cerebral infarction without residual deficits; Z79.02 Long term (current) use of antithrombotics/antiplatelets
CPT/HCPCS: 29515; 73610; 99212; G0463

== ENCOUNTER → 2022-05-08 11:47 | Outpatient (CLI) | payer MEDICARE, MEDICAID, SELFPAY ==
--- NOTE | 2022-05-08 12:11 | CT_ITS ---
FINAL REPORT TECHNIQUE: Then section axial CT images of the chest were obtained with contrast. Three-D reformatted images were also obtained.This study was performed with techniques to keep radiation doses as low as reasonably achievable (ALARA). Individualized dose reduction techniques using automated exposure control or adjustment of mA and/or kV according to the patient''s size were employed. CLINICAL HISTORY: DISSECTING ASENDING AORTIC ANEURYSM COMPARISON: March 23, 2021 FINDINGS: There is no evidence of pulmonary embolism. There has been interval placement of an ascending aortic graft. There is a small focal dissection of the proximal left subclavian artery, stable. No other dissection is visualized. There is mild vascular calcification. There is no evidence of mediastinal or hilar mass or adenopathy. There is no evidence of pulmonary mass or suspicious nodule. There are moderate changes of emphysema. Limited images of the upper abdomen are unremarkable. IMPRESSION: Interval placement of ascending aortic graft. 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 Reviewed, Interpreted and Dictated by Roberto Tabares III, MD Transcribed by Jesus Zazueta Authenticated and [facility]
[2022-05-08 12:17] LABS: Blood Urea Nitrogen 17 mg/dl (7-17); Estimated Glomerular Filt Rate 62 ml/min (>60); GFR (African American) 74 ML/MIN (>60)
== END ==
PROVIDERS: PCP Internal Medicine Adolescent Medicine; Visit Provider Thoracic Surgery (Cardiothoracic Vascular Surgery)
DX: I71.01 Dissection of thoracic aorta (principal); I71.2 Thoracic aortic aneurysm, without rupture
CPT/HCPCS: 36415; 71275; 82565; 84520; Q9967

== ENCOUNTER → 2022-09-27 12:01 | Outpatient (CLI) | payer MEDICARE, OTHER, SELFPAY ==
--- NOTE | 2022-09-27 12:33 | CT_ITS ---
FINAL REPORT CLINICAL HISTORY: DISSECTING ASCENDING AORTA COMPARISON: 05/08/2022 FINDINGS: Thin section axial CT images of the chest were obtained with contrast. 3D reformatted images were also obtained. This study was performed with techniques to keep radiation doses as low as reasonably achievable (ALARA). Individualized dose reduction techniques using automated exposure control or adjustment of mA and/or kV according to the patient's size were employed. There are postoperative changes from median sternotomy. There is no evidence of pulmonary embolism. An ascending aortic graft is present. There is a small focal dissection of the proximal left subclavian artery which is stable. Other vessels are unremarkable. There is no evidence of mediastinal or hilar mass or adenopathy. There is no evidence of pulmonary mass or nodule. There is moderate emphysema. Limited images of the upper abdomen are unremarkable. IMPRESSION: Stable appearing chest. No new abnormalities. Reviewed, Interpreted and Dictated by Roberto Tabares III, MD Transcribed by Betsy Bain Authenticated and [facility]
[2022-09-27 12:56] LABS: Blood Urea Nitrogen 15 mg/dl (7-17); Estimated Glomerular Filt Rate 55 ml/min (>60); GFR (African American) 66 ML/MIN (>60)
== END ==
PROVIDERS: PCP Internal Medicine Adolescent Medicine; Visit Provider Thoracic Surgery (Cardiothoracic Vascular Surgery)
DX: I71.010 Dissection of ascending aorta (principal); I71.21 Aneurysm of the ascending aorta, without rupture
CPT/HCPCS: 36415; 71275; 82565; 84520; Q9967

== ENCOUNTER → 2022-10-24 17:20 | Outpatient (CLI) | payer MEDICARE, SELFPAY | PROVIDERS: PCP Family Medicine; Visit Provider Family Medicine | DX: R05.9 Cough, unspecified (principal) | CPT/HCPCS: C9803; U0003; U0005 ==

== ENCOUNTER → 2022-10-31 13:38 | Outpatient (CLI) | payer MEDICARE, OTHER, SELFPAY ==
--- NOTE | 2022-10-31 13:57 | XR_ITS ---
FINAL REPORT CLINICAL HISTORY: THORACIC PAIN FINDINGS: THORACIC SPINE SERIES. Two views were obtained. There is no acute fracture. There are [id number] degenerative changes with osteophytes. There is no malalignment. IMPRESSION: [id number] degenerative changes. Reviewed, Interpreted and Dictated by Roberto Tabares III, MD Transcribed by Jesus Zazueta Authenticated and [facility]
[2022-10-31 14:24] LABS: Basophils # 0.1 K/mm3 (0-0.2); Basophils % 0.8 % (0.1-2.0); Eosinophils # 0.1 K/mm3 (0.0-0.4); Eosinophils % 1.2 % (0.1-12.0); Hematocrit 47.6 % (37.0-47.0); Hemoglobin 14.6 g/dL (12.2-16.2); Lymphocytes # 3.1 K/mm3 (0.7-4.5); Lymphocytes % 34.2 % (10-50); Mean Corpuscular HGB Conc 30.7 g/dL (31.8-35.4); Mean Corpuscular Hemoglobin 31.2 pg (27.0-31.2); Mean Corpuscular Volume 101.8 fl (81-99); Mean Platelet Volume 8.2 fl (7.4-10.4); Monocytes # 0.3 K/mm3 (0.1-1.0); Monocytes % 3.5 % (1.7-9.3); Neutrophils # 5.5 K/mm3 (1.8-7.8); Neutrophils % 60.2 % (37.0-80.0); Platelet Count 405 K/mm3 (142-424); Red Blood Count 4.67 M/mm3 (4.20-5.40); Red Cell Distribution Width 12.9 % (11.5-17.5); White Blood Count 9.1 K/mm3 (4.8-10.8)
[2022-10-31 14:38] LABS: Chloride 102 mmol/L (98-107)
[2022-10-31 14:39] LABS: Potassium 4.8 mmoL/L (3.5-5.1); Sodium 141 mmol/L (136-145)
[2022-10-31 14:41] LABS: Alanine Aminotransferase 11 U/L (12-78); Anion Gap 10.8 mEq/L (5-15); Aspartate Amino Transferase 22 U/L (14-36); Blood Urea Nitrogen 14 mg/dl (7-17); Carbon Dioxide 33 mmol/L (22.0-30.0); Estimated Glomerular Filt Rate 61 ml/min (>60); GFR (African American) 74 ML/MIN (>60)
[2022-10-31 14:42] LABS: Albumin Level 4.4 g/dl (3.5-5.0); Albumin/Globulin Ratio 1.6 (1.1-1.8); Alkaline Phosphatase 78 U/L (38-126); Bilirubin,Total 0.4 mg/dl (0.2-1.3); Calcium 9.6 mg/dl (8.4-10.2); Chol/HDL Ratio 5.2 (1-3.5); Cholesterol 249 mg/dl (140-200); Globulin 2.8 g/dL (1.3-3.2); Glucose 99 mg/dl (74-100); HDL Cholesterol 48 mg/dl (40-60); Total Protein,Serum 7.2 g/dl (6.3-8.2); Triglycerides 214 mg/dl (30-150); VLDL Cholesterol 43 mg/dL (0-40)
[2022-10-31 14:53] LABS: Direct LDL Cholesterol 138.91 mg/dL (100-129)
[2022-10-31 15:13] LABS: Thyroid Stimulating Hormone 3.51 uIU/mL (0.465-4.68)
[2022-10-31 15:42] LABS: Hemoglobin A1C 5.5 % (4.0-6.0)
== END ==
PROVIDERS: PCP Internal Medicine Adolescent Medicine; Visit Provider Internal Medicine Adolescent Medicine
DX: I25.110 Atherosclerotic heart disease of native coronary artery with unstable angina pectoris (principal); I10 Essential (primary) hypertension; I71.20 Thoracic aortic aneurysm, without rupture, unspecified; M54.6 Pain in thoracic spine; Z79.899 Other long term (current) drug therapy
CPT/HCPCS: 36415; 72072; 80053; 80061; 83036; 84443; 85025

== ENCOUNTER → 2022-11-14 09:34 | Outpatient (CLI) | payer MEDICARE, SELFPAY | PROVIDERS: PCP Internal Medicine Adolescent Medicine; Visit Provider Internal Medicine Adolescent Medicine | DX: M54.6 Pain in thoracic spine (principal) ==

== ENCOUNTER → 2022-11-27 10:24 | Outpatient (CLI) | payer MEDICARE, SELFPAY ==
--- NOTE | 2022-11-27 10:27 | MR_ITS ---
FINAL REPORT TECHNIQUE: Multiplanar MR without contrast of the thoracic spine. CLINICAL HISTORY: PAIN IN THORACIC SPINE around bra line, armaan njury FINDINGS: The vertebral heights are normal. Marrow signal pattern is unremarkable. There is upper thoracic kyphosis without subluxation. Thoracic spinal cord shows a normal MR appearance. No significant disc disease is appreciated. There is no canal stenosis present. IMPRESSION: No acute abnormality identified. Upper thoracic kyphosis without subluxation. Reviewed, Interpreted and Dictated by Guadalupe Hanna MD Transcribed by Cathy Bryan Authenticated and [facility]
== END ==
LOC: RAD 10:24
PROVIDERS: PCP Internal Medicine Adolescent Medicine; Visit Provider Internal Medicine Adolescent Medicine
DX: M54.6 Pain in thoracic spine (principal)
CPT/HCPCS: 72146

== ENCOUNTER → 2022-12-17 08:02 | Outpatient (CLI) | payer MEDICARE, SELFPAY ==
--- NOTE | 2022-12-17 08:05 | XR_ITS ---
FINAL REPORT TECHNIQUE: Bone densitometry calculations of the lumbar spine right hip were obtained. CLINICAL HISTORY: POST MENOPAUSAL FINDINGS: DEXA BONE DENSITY AXIAL SKELETON Using L1-4, the bone mineral density of the spine is 0.826 g/cm2, corresponding to T-score of -2.0 with a Z-score of 0.3. Using the right hip, the bone mineral density of the femoral neck is 0.588 g/cm2, corresponding to a T-score of and with a Z-score of -1.2. NOTE: T-score: Standard deviation compared with peak bone mass of young adult mean. *Following the recommendations of the International Society of Bone Densitometry, classification of hip BMD is based on the lower of two T-scores; total hip or femoral neck. IMPRESSION: Osteoporosis: Lowest T-score is at or below -2.5. This patient's T-score meets the World Health Organization criteria for osteoporosis. Diminished bone mineral density of the spine consistent with osteopenia. Reviewed, Interpreted and Dictated by Phoebe Aquino MD Transcribed by Cathy Bryan Authenticated and [facility]
--- NOTE | 2022-12-17 08:05 | MM_ITS ---
PROCEDURE INFORMATION: Exam: Bilateral Screening 3D Mammography Exam date and time: 12/17/2022 7:59 AM Age: 72 years old Clinical indication: Baseline. No family history of breast cancer. TECHNIQUE: Imaging protocol: Bilateral Screening tomosynthesis and 2D mammography including computer-aided detection (CAD) when performed. COMPARISON: No relevant prior studies available.If prior mammograms are provided, I am happy to add an addendum. FINDINGS: MAMMOGRAPHY: Breast composition: There are scattered areas of fibroglandular density. Mass: Mildly lobulated 1.2 cm mass in the left lower outer quadrant, middle 3rd, 8-9 cm from the nipple. Architectural distortion: None. Calcifications: No suspicious calcifications. Asymmetric density: None. Skin thickening: None. Axillary adenopathy: None. IMPRESSION: Patient will be recalled for left sonography for further evaluation of left breast mass. ASSESSMENT: BI-RADS Category 0: Incomplete- Need Additional Imaging Evaluation and/or Prior Mammograms for Comparison
== END ==
PROVIDERS: PCP Internal Medicine Adolescent Medicine; Visit Provider Internal Medicine Adolescent Medicine
DX: Z12.31 Encounter for screening mammogram for malignant neoplasm of breast (principal); Z78.0 Asymptomatic menopausal state
CPT/HCPCS: 77063; 77067; 77080

== ENCOUNTER → 2022-12-26 08:28 | Outpatient (CLI) | payer MEDICARE, SELFPAY ==
--- NOTE | 2022-12-26 08:32 | US_ITS ---
PROCEDURE INFORMATION: Exam: US Left Breast, Complete Exam date and time: 12/26/2022 9:20 AM Age: 72 years old Clinical indication: Patient recalled for further evaluation of a left breast mass TECHNIQUE: Imaging protocol: Left Ultrasound of the breast with image documentation. All quadrants and retroareolar regions evaluated. Exam focused on the search and evaluation for abscess. Exam is an emergent request and a non-BIRADS study. COMPARISON: MG MM DIG SCREENING MAMM BI W/CAD 12/17/2022 7:59 AM FINDINGS: Breast: Sonographic images of the left breast including the retroareolar region, all 4 quadrants and the axilla demonstrates a superficial lobulated hypoechoic solid mass measuring 1.2 x 0.4 x 1.1 cm in dimension. It is noted in the 4 o'clock axis 7 cm from the nipple and likely correlates with the mass on mammography although the morphology is somewhat different between the 2 studies. 0.3 cm 8 o'clock axis cyst. No architectural distortion or acoustical shadowing. No skin thickening or axillary adenopathy. IMPRESSION: Indeterminate solid mass in the left breast. Ultrasound-guided core biopsy with clip placement and post biopsy left mammogram are recommended for further evaluation as well as to assess for accurate correlation between the mammographic and sonographic findings ASSESSMENT: BI-RADS Category 0: Incomplete- Need Additional Imaging Evaluation and/or Prior Mammograms for Comparison
== END ==
LOC: RAD 08:29
PROVIDERS: PCP Internal Medicine Adolescent Medicine; Visit Provider Internal Medicine Adolescent Medicine
DX: R92.8 Other abnormal and inconclusive findings on diagnostic imaging of breast (principal)
CPT/HCPCS: 76641

== ENCOUNTER → 2023-01-15 10:26 | Outpatient (CLI) | payer MEDICARE, SELFPAY ==
--- NOTE | 2023-01-15 10:30 | MM_ITS ---
FINAL REPORT CLINICAL HISTORY: . clip left breast nodule. Biopsy. FINDINGS: MAMMOGRAM LEFT TECHNIQUE: Standard digital 2-D views COMPARISON: 12-26-22 DENSITY: There are scattered areas of fibroglandular density FINDINGS: Post biopsy marker clip is noted to be in satisfactory position associated with a partially obscured oval nodule left lower outer quadrant.. Postbiopsy changes are noted. IMPRESSION: Biopsy marker clip in good position RECOMMENDATION: Pending histopathology evaluation Authenticated and [facility]
--- NOTE | 2023-01-15 10:43 | US_ITS ---
FINAL REPORT CLINICAL HISTORY: ABNORMAL MAMM-- dr baptiste, left breast nodule FINDINGS: ULTRASOUND-GUIDED LEFT BREAST CORE BIOPSY TECHNIQUE: Limited images were obtained to localize region of interest. The left breast was prepped in a routine sterile fashion and locally anesthetized with 1% lidocaine. Standard written informed consent was obtained. The target lesion was located at 4:00 superficially measuring slightly less than 1 cm. The biopsy needle was positioned within the outer periphery of the lesion. A total of 4 passes were made with a 16 gauge core biopsy needle. A biopsy marker clip was deployed in satisfactory position. Postbiopsy mammogram showed postbiopsy changes with clip in satisfactory position. Procedure was well tolerated . CONCLUSION: 1. Technically successful ultrasound guided core biopsy of left breast lesion as above. 2. Biopsy marker clip deployed Authenticated and [facility]
== END ==
LOC: RAD 10:26
PROVIDERS: PCP Internal Medicine Adolescent Medicine; Visit Provider Internal Medicine Adolescent Medicine
DX: R92.8 Other abnormal and inconclusive findings on diagnostic imaging of breast (principal)
CPT/HCPCS: 19083; 76942; 77065; 88305

== ENCOUNTER 2023-04-30 08:16 | Day surgery (SDC) | payer MEDICARE, SELFPAY ==
[2023-04-21 12:14] VITALS: BMI 24.4
[2023-04-30] VITALS (7 sets, daily range): BP systolic 128–135; BP diastolic 69–74; PULSE 66–91; RESP 17–18; TEMP 36.4–36.7; O2SAT 91–97
--- NOTE | 2023-04-30 10:21 | EXP.ANES.CKL ---
[facility] Disclaimer: The information contained in this section may have been updated after the patient was seen, as this information can be updated by other users. Medical History Allergies Hx-TIA (transient ischemic attack) Surgical History History of open heart surgery Hx of heart surgery Family History Other Colon cancer Family history of acute congestive heart failure Social History Smoking Status: Current every day smoker tobacco type: cigarettes packs per day: 1 pack-years: 40 alcohol intake: current substance use type: denies use current occupational status: retired Travel in the last 8 weeks: Inside the [place] household members: none housing: house lives independently: Yes marital status: single education level: college service: No current occupation: respiratory therapist caffeine: No special shirley needs: No do you feel safe at home: Yes victim of physical abuse: No victim of emotional abuse: No victim of sexual abuse: No would you like helpful sources: No [facility] Anesthesia Checklist Patient Identification Patient Identification: Arm Band and Verbal (Name & ) Structural Data Admitted From: Home Planned Operative Procedure/s: Colonoscopy Consent for Planned Operative Procedure(s) Verified: Yes NPO Status Verified Time NPO: 00:00 Airway Assessment C-Spine Mobility Assessed: Yes TMJ Mobility Assessed: Yes Dentition: Dentures-poor fitting Neurological Assessment Level of Consciousness: Awake Hx Seizures: No Numbness or tingling in extremities: No Anesthesia Plan Anesthesia Risk discussed: Yes Anesthesia Plan: Verified ASA Class: II Anesthesia Type: MAC
--- NOTE | 2023-04-30 10:48 | HMH.SCOPE ---
Procedure: Date: 04/30/23 Patient Date of :: 1950 Procedure Performed:: Colonoscopy Indications:: The patient is a 72 year old who presents for high risk screening colonoscopy for a family history of colon cancer in first degree relative (mother) Performing Provider:: Dada Devries MD Referring Provider:: Dmitry Cesar MD Sedation:: See RN records Procedure:: After placing the patient in the left lateral decubitus position, the colonoscopy was gently inserted into the rectum and under direct visualization advanced to the cecum which was identified by transillumination in the right lower quadrant, identification of the ileocecal valve, appendiceal orifice, and cecal strap. Color, texture, mucosa, and anatomy of the colon were carefully examined with the scope. Findings:: Anal canal: normal Rectum: hemporrhoids Sigmoid colon: Diverticulosis. Fair preparation Descending colon: Fair preparation Splenic flexure: normal Transverse colon: normal without polyps or inflammatory changes Hepatic flexure: normal Ascending colon:Four sessile polyps measuring between 4-5 mm in size. Removed with cold snare polypectomy and cold forceps Cecum: Fair preparation Terminal ileum: not visualized Impression: Polyps of ascending colon Diverticulosis Tortuous colon with most angulation within the sigmoid colon Fair preparation Recommendations:: Await pathology results Recommend repeat surveillance colonoscopy in 3 years Complications:: None Estimated blood obtained (mL): 0 Colonoscopy Component Colonoscopy Component Was a colonoscopy performed during today's procedure?: Yes Recommended follow up colonoscopy of at least 10 years?: Yes
== END 2023-04-30 11:45 | disposition home or self-care (01) ==
PROVIDERS: PCP Internal Medicine Adolescent Medicine; Visit Provider Internal Medicine
PROC: 0DJD8ZZ Inspection of Lower Intestinal Tract, Via Natural or Artificial Opening Endoscopic (ICD-10-PCS; CPT 45378; principal; 2023-04-30 10:00)
DX: Z12.11 Encounter for screening for malignant neoplasm of colon (principal); D12.2 Benign neoplasm of ascending colon; K64.8 Other hemorrhoids; K57.30 Diverticulosis of large intestine without perforation or abscess without bleeding; K56.2 Volvulus
CPT/HCPCS: 45385; 88305

== ENCOUNTER → 2023-10-13 13:04 | Outpatient (CLI) | payer MEDICARE, SELFPAY ==
--- NOTE | 2023-10-13 13:25 | CT_ITS ---
FINAL REPORT TECHNIQUE: After the administration of intravenous contrast, axial images through the chest were performed by computed tomography. This study was performed with techniques to keep radiation doses as low as reasonably achievable, (ALARA). Individualized dose reduction techniques using automated exposure control or adjustment of mA and/or kV according to the patient's size were employed. CLINICAL HISTORY: DISSECTING AAA COMPARISON: 09/27/2022 FINDINGS: CTA CHEST FINDINGS: Mediastinal vasculature is adequately opacified. No pulmonary artery filling defects are identified to suggest PE. The ascending thoracic aorta graft seen on the prior CT of 2021 remained stable. 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 There is no axillary adenopathy. There is no hilar or mediastinal adenopathy. The heart size is normal. There is no pericardial or pleural effusion. A new curvilinear density is seen in the medial left upper lobe measuring 6 mm in size, best seen on image 49. Moderate changes of centrilobular emphysema are again noted. IMPRESSION: Ascending thoracic aortic graft remains present. 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 New curvilinear density in the medial left upper lobe, 6 mm in size, according to Fleischner criteria recommend a 6-month follow-up CT of the chest. Reviewed, Interpreted and Dictated by Deondre Azevedo MD Transcribed by Wendi Da Silva Authenticated and [facility]
[2023-10-13 13:41] LABS: Blood Urea Nitrogen 13 mg/dl (7-17); Estimated Glomerular Filt Rate 61 ml/min (>60); GFR (African American) 74 ML/MIN (>60)
--- NOTE | 2023-10-13 14:21 | CT_ITS ---
FINAL REPORT TECHNIQUE: Axial images through the chest were performed by computed tomography. This study was performed with techniques to keep radiation doses as low as reasonably achievable, (ALARA). Individualized dose reduction techniques using automated exposure control or adjustment of mA and/or kV according to the patient's size were employed. CLINICAL HISTORY: DISSECTING AAA COMPARISON: CTA of the chest dated 09/27/2022 FINDINGS: There are moderate changes of centrilobular emphysema present. 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 There is a new curvilinear density in the medial aspect of the left upper lobe measuring 6 mm in size, best seen on image #49. The heart size is normal. There is no pericardial or pleural effusion. Limited images of the upper abdomen are unremarkable. IMPRESSION: New curvilinear density in the medial aspect of the left upper lobe, 6 mm in size, not seen on the prior chest CTA. According to Fleischner criteria, recommend a 6-month follow-up chest CT. 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 Reviewed, Interpreted and Dictated by Deondre Azevedo MD Transcribed by Wendi Da Silva Authenticated and [facility]
== END ==
LOC: RAD 13:04
PROVIDERS: PCP Internal Medicine Adolescent Medicine; Visit Provider Thoracic Surgery (Cardiothoracic Vascular Surgery)
DX: I71.010 Dissection of ascending aorta (principal)
CPT/HCPCS: 36415; 71250; 71275; 82565; 84520; Q9967

== ENCOUNTER 2025-03-04 12:37 | Outpatient (CLI) | payer MEDICARE, SELFPAY ==
--- NOTE | 2025-03-04 12:44 | MR_ITS ---
FINAL REPORT CLINICAL HISTORY: HEADACHE DISORDER/ASECDING AORTIC DISSECTION. DIZZNESS AND BLURRED VISION. SYMPTOMS [id number]. NO INJURY OR TRAUMA. FINDINGS: Multi planar MR imaging was obtained through the brain without contrast. The midline structures appear intact. There is no evidence of Chiari malformation. There is mild age-appropriate atrophy. There are minimal foci of abnormal signal in the deep white matter consistent with chronic ischemia. On T2 and flair axial images the brain parenchyma is homogeneous. On diffusion-weighted images there is no evidence of restricted diffusion. The visualized paranasal sinuses demonstrate normal signal voids. The seventh and eighth nerve root complexes are intact. IMPRESSION: No acute intracranial abnormality. Mild age-appropriate atrophy with minimal changes of chronic microvascular ischemia. Reviewed, Interpreted and Dictated by Deondre Azevedo MD Transcribed by Betsy Bain Authenticated and [facility]
--- NOTE | 2025-03-04 12:48 | MR_ITS ---
FINAL REPORT CLINICAL HISTORY: HEADACHE DISORDER/ASECDING AORTIC DISSECTION. DIZZNESS AND BLURRED VISION. SYMPTOMS [id number]. NO INJURY OR TRAUMA. FINDINGS: Multiple projection images of the brain arterial vasculature were obtained without contrast. raw data images were also reviewed. The internal carotid arteries are patent. The middle cerebral arteries and visualized proximal branches are patent. The anterior cerebral arteries are patent.The left A1 segment is dominant. The intracranial vertebral arteries are patent. The basilar artery is patent. The posterior cerebral arteries are patent. IMPRESSION: No major vessel occlusion or aneurysm. Reviewed, Interpreted and Dictated by Deondre Azevedo MD Transcribed by Betsy Bain Authenticated and [facility]
--- NOTE | 2025-03-04 12:49 | MR_ITS ---
FINAL REPORT CLINICAL HISTORY: HEADACHE DISORDER/ASECDING AORTIC DISSECTION. DIZZNESS AND BLURRED VISION. SYMPTOMS [id number]. NO INJURY OR TRAUMA. FINDINGS: Multiple projection images of the neck arterial vasculature were obtained without contrast. The raw data images were also reviewed. The right common carotid artery has an unremarkable appearance without evidence of stenosis or occlusion. The right internal carotid artery has an unremarkable appearance without evidence of stenosis or occlusion. The right external carotid artery is patent. The right vertebral artery is patent without evidence of stenosis. The left common carotid artery has an unremarkable appearance without evidence of stenosis or occlusion. The left internal carotid artery is patent without evidence of stenosis or occlusion. The left external carotid artery is patent. The left vertebral artery is dominant and patent without evidence of stenosis. IMPRESSION: Unremarkable MR angiogram of the neck without evidence of stenosis or occlusion. Reviewed, Interpreted and Dictated by Deondre Azevedo MD Transcribed by Betsy Bain Authenticated and . [facility]
== END 2025-03-04 23:59 | disposition home or self-care (01) ==
LOC: RAD 12:38
PROVIDERS: PCP Internal Medicine Adolescent Medicine; Visit Provider Internal Medicine Adolescent Medicine
DX: R51.9 Headache, unspecified (principal); I71.010 Dissection of ascending aorta
CPT/HCPCS: 70544; 70547; 70551